=== PATIENT | female | born 1950 | race Caucasian/White ===

== ENCOUNTER → 2023-12-01 08:53 | Outpatient (REF) | payer MEDICARE, OTHER, SELFPAY ==
[2023-12-01 11:27] LABS: ALT (SGPT) 18 U/L (0-35); AST (SGOT) 25 U/L (14-36); Albumin 4.1 g/dl (3.5-5.0); Alkaline Phosphatase 74 U/L (38-126); Blood Urea Nitrogen 16 mg/dl (7-17); Calcium 9.1 mg/dl (8.4-10.2); Carbon Dioxide 24 mmol/L (22-30); Chloride 107 mmol/L (98-107); Glucose 100 mg/dl (70-99); HDL Cholesterol 68 mg/dl; LDL Cholesterol, Calculated 75 mg/dl; Potassium 4.4 mmol/L (3.5-5.1); Sodium 139 mmol/L (135-145); Total Bilirubin 0.6 mg/dl (0.2-1.3); Total Cholesterol 159 mg/dl (50-199); Total Protein 6.8 g/dl (6.3-8.2); Triglyceride 84 mg/dl (10-149); Very Low Density Lipoprotein 16 mg/dl (0-30); eGFR > 60.00
[2023-12-01 12:15] LABS: Glycohemoglobin (HgbA1c) 6.1 % (4.0-5.6)
== END ==
LOC: REG 08:53
PROVIDERS: ATTENDING PHYSICIAN Family Medicine
DX: I10 Essential (primary) hypertension (principal); R73.03 Prediabetes; E78.2 Mixed hyperlipidemia
CPT/HCPCS: 36415; 80053; 80061; 83036

== ENCOUNTER → 2023-12-15 12:28 | Outpatient (REF) | payer MEDICARE, OTHER, SELFPAY | LOC: HWWDC 12:28 | PROVIDERS: ATTENDING PHYSICIAN Family Medicine | DX: Z12.31 Encounter for screening mammogram for malignant neoplasm of breast (principal) | CPT/HCPCS: 77063; 77067 ==

== ENCOUNTER → 2023-12-23 08:46 | Outpatient (REF) | payer MEDICARE, OTHER, SELFPAY | LOC: WDC 08:46 | PROVIDERS: ATTENDING PHYSICIAN Family Medicine | DX: R92.8 Other abnormal and inconclusive findings on diagnostic imaging of breast (principal) | CPT/HCPCS: 76642 ==

== ENCOUNTER 2024-06-02 19:57 | Emergency (ER) | payer MEDICARE, OTHER, SELFPAY ==
[2024-06-02 20:01] VITALS: BP 163/93
--- NOTE | 2024-06-02 23:58 | ED.GENMED ---
History of Present Illness
General
Chief Complaint: Fall
Source: patient and spouse
Exam Limitations: none
Time Seen by Provider: 06/02/24 21:31
History of Present Illness
History of Present Illness:
73-year-old female presents after fall. Patient states that she was try to manipulate her cane while walking and tripped. She complains of pain to the right wrist. She also did hit her head. No loss of consciousness. No neck pain. No back
pain. No hip pain. No knee pain. Anticoagulated
Past History
Past History
ED Past Medical History: Other (Arthritis,)
Phy Exam
Physical Exam
Physical Exam:
CONSTITUTIONAL Vital signs reviewed, Patient alert and oriented to person, place and time. Well-appearing
HEAD hematoma noted to the left forehead.
EYES eyelids normal to inspection, Extraocular muscles intact, Conjunctiva normal, Sclera normal.
NECK normal range of motion, Trachea midline, no jugular venous distention.
RESP no respiratory distress
BACK No obvious deformities
UPPER EXTREMITY gross motor strength normal. Swelling noted to the distal radius with minor deformity noted. Normal distal cap refill. Normal patent and motor function of the extremities. Elbow nontender. Shoulder nontender.
LOWER EXTREMITY Gross range of motion normal, Gross motor strength normal
NEURO Speech normal, No focal motor deficits include, Mccune coma scale 15, Memory normal, Cranial Nerves intact to screening exam.
SKIN Skin warm, dry, and normal in color.
PSYCHIATRIC Patient oriented to person place and time, Normal affect.
Course
Orders/Labs/Results
Orders:
Orders
06/02/24 20:03
Forearm, Right 2 View [CR Forearm - Right 2 View] Urgent
Comment:
Reason For Exam: pain, fall
Wrist, Right 3 Views [CR Wrist - Right Min 3 Views] Urgent
Comment:
Reason For Exam: pain, fall
06/02/24 22:05
CT Head W/o Iv Contrast Urgent
Comment:
Reason For Exam: fall
Vital Signs
Initial and Last Documented VS:
Initial Vital Signs
Temp Pulse Resp BP Pulse Ox
98.2 F 89 22 163/93 98
06/02/24 20:01 06/02/24 20:01 06/02/24 20:01 06/02/24 20:01 06/02/24 20:01
Last Documented Vital Signs
Temp Pulse Resp BP Pulse Ox
98.2 F 89 22 163/93 98
06/02/24 20:01 06/02/24 20:01 06/02/24 20:01 06/02/24 20:01 06/02/24 20:01
Procedures
Splinting/Sling Placement
Right Arm:
Procedure completed by: Dr. Hannon
Pre-splint extermity exam: neurovascular intact
Type of splint: sugar-tong
Splint material: fiberglass
Splint checked by provider?: Yes
Type of sling: sling fitted
Normal distal neurovascular exam?: Yes
MDM/Problems Addressed
Differential Diagnosis Includes:
Intracranial hemorrhage, skull fracture, head injury, distal radius fracture, carpal fracture
MDM/Problems Addressed:
Comminuted distal radius fracture
*Radiology
Radiology exam reviewed: preliminary read by ED provider (Comminuted distal radius fracture) and radiology read reviewed
*Pulse Oximetry
Patient hypoxic: no
*Critical Care Note
Total Time (30-74mins, 75-104mins- exclusive of procedures): Not Applicable
Data Reviewed
Source: patient and spouse
Further Testing Considered But Not Given:
Consider C-spine imaging but no neck pain. No midline tenderness
Patient Management
Escalation/DeEscalation of care consider admission/obs:
Distal radius fracture that will require surgery. Does have minimal dorsal displacement and was molded during splint placement. Will recommend orthopedic follow-up
ED Attending Note
-
Portions of this chart may have been created with voice recognition software.� Occasional wrong word or��sound alike� substitutions may have occurred due to the inherent limitations of voice recognition software.
Discharge Plan
Departure
Patient Disposition: Home (Routine Discharge)
Date of Disposition: 06/03/24
Time of Disposition: 00:01
Patient with high blood pressure during this ER visit?: Yes
Discharge Problem:
Comminuted distal radius fracture
Instructions: Wrist fracture, BLOOD PRESSURE
Prescriptions:
No Action
multivitamin [Daily Multiple] 1 EACH tablet
1 ea PO DAILY
alendronate 70 MG tablet
70 mg PO .WEEKLY WEDNESDAY
ascorbic acid (vitamin C) [Vitamin C] 500 MG tablet
500 mg PO HS
cholecalciferol (vitamin D3) [Vitamin D3] 1,000 UNIT capsule
1,000 unit PO HS
calcium carbonate-vitamin D3 [Calcium 600 + D(3)] 1 EACH tablet
1 ea PO BID
sennosides [senna] 1 TABLET tablet
2 tab PO BID 0RF
acetaminophen 325 MG tablet
650 mg PO QID 0RF
magnesium hydroxide 30 ML suspension
30 ml PO HS 0RF
Rx Instructions:
take nightly until BM
aspirin 325 MG tablet,delayed release (DR/EC)
325 mg PO DAILY 0RF
docusate sodium 100 MG capsule
100 mg PO BID 0RF
mupirocin 1 APPLIC ointment
1 applic intranasal BID 0RF
Rx Instructions:
use tonight 04/06, then stop
oxycodone 5 MG tablet
5 mg PO Q4HPRN PRN (Reason: moderate-severe pain) Qty: 60 0RF
Rx Instructions:
1 tab moderate pain or 2 if severe
dx purnima
ongoing
celecoxib 200 MG capsule
200 mg PO DAILY Qty: 14 0RF
Referrals:
Lala Herbert MD [Family Provider] -
Sandip Galindo MD [Active] -
Activity Restrictions/Additional Instructions:
Please rest, ice and elevate your injured wrist. Please see orthopedics in follow-up in the next 5 to 7 days. Return immediately for numbness, tingling, changes in mentation, weakness of any kind or any other concerns. Given your injury, please
be careful when walking and getting up.
Interventions
Interventions:
ED-Musculoskeletal Assessment Last Done: 06/02/24 21:30
ED- Neurological Assessment Last Done: 06/02/24 21:30
ED-Skin Assessment Last Done: 06/02/24 21:30
Discharge Date and Time
Print Language: CHINESE
[2024-06-03 00:21] VITALS: BP 155/79
== END 2024-06-03 00:22 | disposition home or self-care (01) ==
LOC: EMR 19:57
PROVIDERS: EMERGENCY PHYSICIAN Emergency Medicine; FAMILY PHYSICIAN Family Medicine
DX: S52.591A Other fractures of lower end of right radius, initial encounter for closed fracture (principal); S00.83XA Contusion of other part of head, initial encounter; W01.0XXA Fall on same level from slipping, tripping and stumbling without subsequent striking against object, initial encounter
CPT/HCPCS: 29125; 99284; 70450; 73090; 73110

== ENCOUNTER → 2024-06-06 11:42 | Outpatient (REF) | payer MEDICARE, OTHER, SELFPAY ==
[2024-06-06 12:44] LABS: % Eosinophils 2.4 % (0-6); % Immature Granulocytes 0.3 % (0-0.5); % Lymphocytes 19.1 % (20.5-51.1); % Monocytes 8.9 % (1.7-9.3); % Neutrophils 68.3 % (42.2-75.2); Absolute Basophils 0.1 10^3/uL (0-0.2); Absolute Eosinophils 0.2 10^3/uL (0-0.7); Absolute Lymphocytes 1.4 10^3/uL (1.2-3.4); Absolute Monocytes 0.6 10^3/uL (0.1-0.6); Absolute Neutrophils 4.9 10^3/uL (1.4-6.5); Hematocrit 42.2 % (37.0-47.0); Mean Corp Hgb Conc. 33.2 g/dL (33.0-37.0); Mean Corpuscular Hgb 31.7 pg (27.0-31.0); Mean Corpuscular Volume 95.5 fL (81.0-99.0); Mean Platelet Volume 9.7 fL (7.4-10.4); Nucleated Red Blood Cells % 0 %; Platelet Count 272 10^3/uL (130-400); Red Blood Cell Count 4.42 10^6/uL (4.20-5.40); Red Cell Dist. Width 12.7 % (11.5-14.5); White Blood Cell Count 7.2 10^3/uL (4.8-10.8)
[2024-06-06 13:23] LABS: Blood Urea Nitrogen 16 mg/dl (7-17); Calcium 9.4 mg/dl (8.4-10.2); Carbon Dioxide 26 mmol/L (22-30); Chloride 106 mmol/L (98-107); Glucose 102 mg/dl (70-99); Potassium 4.3 mmol/L (3.5-5.1); Sodium 142 mmol/L (135-145); eGFR > 60.00
== END ==
LOC: RAD 11:42
PROVIDERS: ATTENDING PHYSICIAN Orthopaedic Surgery; FAMILY PHYSICIAN Family Medicine
DX: Z01.818 Encounter for other preprocedural examination (principal)
CPT/HCPCS: 36415; 80048; 85025; 93005

== ENCOUNTER → 2024-11-06 08:48 | Outpatient (REF) | payer MEDICARE, OTHER, SELFPAY ==
[2024-11-06 09:49] LABS: % Basophils 1.8 % (0-2); % Eosinophils 5.4 % (0-6); % Immature Granulocytes 0.3 % (0-0.5); % Lymphocytes 21.6 % (20.5-51.1); % Monocytes 8.2 % (1.7-9.3); % Neutrophils 62.7 % (42.2-75.2); Absolute Basophils 0.1 10^3/uL (0-0.2); Absolute Eosinophils 0.4 10^3/uL (0-0.7); Absolute Lymphocytes 1.6 10^3/uL (1.2-3.4); Absolute Monocytes 0.6 10^3/uL (0.1-0.6); Absolute Neutrophils 4.8 10^3/uL (1.4-6.5); Hematocrit 42.3 % (37.0-47.0); Mean Corp Hgb Conc. 33.1 g/dL (33.0-37.0); Mean Corpuscular Hgb 30.5 pg (27.0-31.0); Mean Corpuscular Volume 92.2 fL (81.0-99.0); Mean Platelet Volume 9.7 fL (7.4-10.4); Nucleated Red Blood Cells % 0 %; Platelet Count 261 10^3/uL (130-400); Red Blood Cell Count 4.59 10^6/uL (4.20-5.40); Red Cell Dist. Width 12.5 % (11.5-14.5); White Blood Cell Count 7.6 10^3/uL (4.8-10.8)
[2024-11-06 10:06] LABS: ALT (SGPT) 14 U/L (0-35); AST (SGOT) 20 U/L (14-36); Albumin 4.3 g/dl (3.5-5.0); Alkaline Phosphatase 78 U/L (38-126); Blood Urea Nitrogen 19 mg/dl (7-17); Calcium 9.4 mg/dl (8.4-10.2); Carbon Dioxide 26 mmol/L (22-30); Chloride 104 mmol/L (98-107); Glucose 107 mg/dl (70-99); HDL Cholesterol 59 mg/dl; LDL Cholesterol, Calculated 87 mg/dl; Potassium 4.9 mmol/L (3.5-5.1); Sodium 140 mmol/L (135-145); Total Bilirubin 0.8 mg/dl (0.2-1.3); Total Cholesterol 161 mg/dl (50-199); Total Protein 6.9 g/dl (6.3-8.2); Triglyceride 79 mg/dl (10-149); Very Low Density Lipoprotein 15 mg/dl (0-30); eGFR > 60.00
[2024-11-06 11:20] LABS: Glycohemoglobin (HgbA1c) 6.1 % (4.0-5.6)
== END ==
LOC: REG 08:48
PROVIDERS: ATTENDING PHYSICIAN Physician Assistant
DX: I10 Essential (primary) hypertension (principal); R73.03 Prediabetes; E78.2 Mixed hyperlipidemia
CPT/HCPCS: 36415; 80053; 80061; 83036; 85025; 86765

== ENCOUNTER → 2024-12-18 09:13 | Outpatient (REF) | payer MEDICARE, OTHER, SELFPAY | LOC: HWWDC 09:13 | PROVIDERS: ATTENDING PHYSICIAN Physician Assistant | DX: Z12.31 Encounter for screening mammogram for malignant neoplasm of breast (principal) | CPT/HCPCS: 77063; 77067 ==

== ENCOUNTER → 2025-04-27 09:48 | Outpatient (REF) | payer MEDICARE, OTHER, SELFPAY | LOC: RCS 09:48 | PROVIDERS: ATTENDING PHYSICIAN Orthopaedic Surgery; FAMILY PHYSICIAN Family Medicine | DX: Z01.818 Encounter for other preprocedural examination (principal) | CPT/HCPCS: 93005 ==

== ENCOUNTER → 2025-05-14 08:32 | Outpatient (REF) | payer MEDICARE, OTHER, SELFPAY ==
[2025-05-14 09:32] LABS: Hematocrit 41.0 % (37.0-47.0); Hemoglobin 13.8 g/dL (12.0-16.0); Mean Corp Hgb Conc. 33.7 g/dL (33.0-37.0); Mean Corpuscular Volume 91.7 fL (81.0-99.0); Nucleated Red Blood Cells % 0 %; Platelet Count 263 10^3/uL (130-400); Red Cell Dist. Width 13.0 % (11.5-14.5)
[2025-05-14 10:38] LABS: Blood Urea Nitrogen 16 mg/dl (7-17); Calcium 9.3 mg/dl (8.4-10.2); Carbon Dioxide 26 mmol/L (22-30); Chloride 103 mmol/L (98-107); Glucose 113 mg/dl (70-99); Potassium 4.6 mmol/L (3.5-5.1); Sodium 134 mmol/L (135-145); eGFR > 60.00
== END ==
LOC: REG 08:32
PROVIDERS: ATTENDING PHYSICIAN Orthopaedic Surgery; FAMILY PHYSICIAN Family Medicine
DX: Z01.818 Encounter for other preprocedural examination (principal)
CPT/HCPCS: 36415; 80048; 85025

== ENCOUNTER → 2025-05-18 08:28 | Outpatient (REF) | payer MEDICARE, OTHER, SELFPAY ==
[2025-05-18 10:58] LABS: Sodium 135 mmol/L (135-145)
== END ==
LOC: REG 08:28
PROVIDERS: ATTENDING PHYSICIAN Physician Assistant
DX: E87.1 Hypo-osmolality and hyponatremia (principal)
CPT/HCPCS: 36415; 84295

== ENCOUNTER 2025-07-02 09:52 | Outpatient (RCR) | payer MEDICARE, OTHER, SELFPAY | END 2025-07-02 23:59 | disposition home or self-care (01) | LOC: RPT 09:52 | PROVIDERS: ATTENDING PHYSICIAN Orthopaedic Surgery; FAMILY PHYSICIAN Family Medicine | DX: Z47.1 Aftercare following joint replacement surgery (principal); M17.12 Unilateral primary osteoarthritis, left knee; M25.562 Pain in left knee; Z73.6 Limitation of activities due to disability; R26.2 Difficulty in walking, not elsewhere classified; R26.89 Other abnormalities of gait and mobility; Z96.653 Presence of artificial knee joint, bilateral; Z96.643 Presence of artificial hip joint, bilateral | CPT/HCPCS: 97010; 97110; 97162; 97530 ==